=== PATIENT | female | born 1965 | race Caucasian/White ===

== ENCOUNTER 2019-01-24 16:12 | Observation (INO) | payer OTHER ==
[2019-01-24] MEDS ORDERED: Sodium Chloride 0.9% 2,000 ML IV ONE (16:30)
[2019-01-24] MEDS ORDERED: Ondansetron 4 MG/2 ML SDV IVPUSH ONE (16:30)
--- NOTE | 2019-01-24 16:34 | EDM.PDOC ---
ED HPI GENERAL MEDICAL PROBLEM - General Chief Complaint: Gastrointestinal Problem Stated Complaint: DIZZY Time Seen by Provider: 01/24/19 16:25 - History of Present Illness INITIAL COMMENTS - FREE TEXT/NARRATIVE: HISTORY AND PHYSICAL: History of present illness: Patient 53-year-old white female who presents with a concern of dizziness vomiting and diarrhea 1 day she just returned from [place] and may have eaten a bad chicken sandwich in the airport. She denies fever chills denies chest pain shortness of breath. She denies trauma urinary symptoms vaginal discharge bleeding or any other complaints. Review of systems: As per history of present illness and below otherwise all systems reviewed and negative. Past medical history: As per history of present illness and as reviewed below otherwise noncontributory. Surgical history: As per history of present illness and as reviewed below otherwise noncontributory. Social history: No reported history of drug or alcohol abuse. Family history: As per history of present illness and as reviewed below otherwise noncontributory. Physical exam: HEENT: Atraumatic, normocephalic, pupils reactive, negative for conjunctival pallor or scleral icterus, mucous membranes dry, throat clear, neck supple, nontender, trachea midline. Lungs: Clear to auscultation, breath sounds equal bilaterally, chest nontender. Heart: S1S2, regular, negative for clicks, rubs, or JVD. Abdomen: Soft, nondistended, nontender. Negative for masses or hepatosplenomegaly. Negative for costovertebral tenderness. Pelvis: Stable nontender. Genitourinary: Deferred. Rectal: Deferred. Extremities: Atraumatic, negative for cords or calf pain. Neurovascular unremarkable. Neuro: Awake, alert, oriented. Cranial nerves II through XII unremarkable. Cerebellum unremarkable. Motor and sensory unremarkable throughout. Exam nonfocal. Diagnostics: CBC CMP troponin PT/INR lipase UA acute abdominal series with chest x-ray CT brain stool for C&S O&P and C. difficile Therapeutics: Normal saline 2 L bolus Zofran 4 mg IV Impression: #1 gastroenteritis with dehydration #2 dizziness Definitive disposition and diagnosis as appropriate pending reevaluation and review of above. abd Pain Score (Numeric/FACES): 5 - Related Data Allergies Allergy/AdvReac Type Severity Reaction Status Date / Time No Known Allergies Allergy Verified 01/24/19 16:22 Home Meds: Home Meds Blood p 01/24/19 [History] PARoxetine HCl [Paxil] 01/24/19 [History] Stomach Medication 01/24/19 [History] ED ROS GENERAL - Review of Systems Review Of Systems: ROS reveals no pertinent complaints other than HPI. ED EXAM, GENERAL - Physical Exam Exam: See Below (dictation) Course - Vital Signs Last Recorded V/S: Last Vital Signs Temp 35.8 C 01/24/19 16:23 Pulse 79 01/24/19 17:56 Resp 16 01/24/19 17:56 BP 135/80 01/24/19 17:56 Pulse Ox 99 01/24/19 17:56 - Orders/Labs/Meds Orders: Active Orders 24 hr Category Date Time Status EKG Documentation Completion [RC] STAT Care 01/24/19 16:28 Active Abdomen Series w Chest 1V [CR] Stat Exams 01/24/19 16:29 Taken Head wo Cont [CT] Stat Exams 01/24/19 16:29 Taken CDIFF TOX A+B [OP] Stat Lab 01/24/19 16:29 Ordered CULTURE BLOOD [BC] Stat Lab 01/24/19 17:25 Received CULTURE BLOOD [BC] Stat Lab 01/24/19 17:53 Received CULTURE STOOL + CAMPY+SHIGATOX [RM] Stat Lab 01/24/19 16:29 Ordered CULTURE URINE [RM] Stat Lab 01/24/19 16:45 Received Piperacillin/Tazobactam [Piperacil-Tazobact] 3.375 gm Med 01/24/19 18:09 Active Sodium Chloride 0.9% [Normal Saline] 50 ml IV ONETIME Sodium Chloride 0.9% [Normal Saline] 1,000 ml Med 01/24/19 18:09 Active IV .Bolus Sodium Chloride 0.9% [Normal Saline] 2,000 ml Med 01/24/19 16:30 Active IV STAT Blood Culture x2 Reflex Set [OM.PC] Stat Oth 01/24/19 16:29 Ordered Isolation [COMM] Stat Oth 01/24/19 16:29 Ordered Medication Orders Sodium Chloride (Normal Saline) 2,000 mls @ 999 mls/hr IV STAT ONE Stop: 01/24/19 18:30 Last Admin: 01/24/19 17:30 Dose: 999 mls/hr Piperacillin Sod/Tazobactam (Sod 3.375 gm/ Sodium Chloride) 50 mls @ 100 mls/ hr IV ONETIME ONE Stop: 01/24/19 18:38 Sodium Chloride (Normal Saline) 1,000 mls @ 999 mls/hr IV .Bolus ONE Stop: 01/24/19 19:09 Labs: Laboratory Tests 01/24/19 01/24/19 01/24/19 Range/Units 16:45 17:25 17:25 WBC 11.85 H (4.0-11.0) K/uL RBC 5.12 (4.30-5.90) M/uL Hgb 17.5 H (12.0-16.0) g/dL Hct 49.4 H (36.0-46.0) % MCV 96.5 (80.0-98.0) fL MCH 34.2 H (27.0-32.0) pg MCHC 35.4 (31.0-37.0) g/dL RDW Std Deviation 46.4 (28.0-62.0) fl RDW Coeff of Britton 13 (11.0-15.0) % Plt Count 226 (150-400) K/uL MPV 10.90 (7.40-12.00) fL Neut % (Auto) 94.2 H (48.0-80.0) % Lymph % (Auto) 1.4 L (16.0-40.0) % [place] % (Auto) 4.2 (0.0-15.0) % Eos % (Auto) 0.1 (0.0-7.0) % Baso % (Auto) 0.1 (0.0-1.5) % Neut # (Auto) 11.2 H (1.4-5.7) K/uL Lymph # (Auto) 0.2 L (0.6-2.4) K/uL [place] # (Auto) 0.5 (0.0-0.8) K/uL Eos # (Auto) 0.0 (0.0-0.7) K/uL Baso # (Auto) 0.0 (0.0-0.1) K/uL Nucleated RBC % 0.0 /100WBC Nucleated RBCs # 0 K/uL INR 1.11 ABG Carboxyhemoglobin (0-15) % Lactate (0.20-2.00) mmol/L Sodium (136-145) mmol/L Potassium (3.5-5.1) mmol/L Chloride (98-107) mmol/L Carbon Dioxide (21.0-32.0) mmol/L BUN (7.0-18.0) mg/dL Creatinine (0.6-1.0) mg/dL Est Cr Clr Drug Dosing mL/min Estimated GFR (MDRD) ml/min Glucose (74-106) mg/dL Calcium (8.5-10.1) mg/dL Total Bilirubin (0.2-1.0) mg/dL AST (15-37) IU/L ALT (14-63) IU/L Alkaline Phosphatase (46-116) U/L Troponin I (0.000-0.056) ng/mL Total Protein (6.4-8.2) g/dL Albumin (3.4-5.0) g/dL Globulin (2.6-4.0) g/dL Albumin/Globulin Ratio (0.9-1.6) Lipase (73-393) U/L Urine Color DARK YELLOW Urine Appearance CLOUDY Urine pH 5.5 (5.0-8.0) Ur Specific [place] >= 1.030 (1.001-1.035) Urine Protein 30 H (NEGATIVE) mg/dL Urine Glucose (UA) NEGATIVE (NEGATIVE) mg/dL Urine Ketones TRACE H (NEGATIVE) mg/dL Urine Occult Blood NEGATIVE (NEGATIVE) Urine Nitrite POSITIVE H (NEGATIVE) Urine Bilirubin MODERATE H (NEGATIVE) Urine Ictotest POSITIVE Urine Urobilinogen 0.2 (<2.0) EU/dL Ur Leukocyte Esterase TRACE H (NEGATIVE) Urine RBC NONE SEEN (0-2/HPF) Urine WBC 2-4 (0-5/HPF) Ur Epithelial Cells MANY (NONE-FEW) Amorphous Sediment MODERATE (NEGATIVE) Urine Bacteria 1+ H (NEGATIVE) Urine Mucus MODERATE (NONE-MOD) 01/24/19 01/24/19 01/24/19 Range/Units 17:25 17:25 17:25 WBC (4.0-11.0) K/uL RBC (4.30-5.90) M/uL Hgb (12.0-16.0) g/dL Hct (36.0-46.0) % MCV (80.0-98.0) fL MCH (27.0-32.0) pg MCHC (31.0-37.0) g/dL RDW Std Deviation (28.0-62.0) fl RDW Coeff of Britton (11.0-15.0) % Plt Count (150-400) K/uL MPV (7.40-12.00) fL Neut % (Auto) (48.0-80.0) % Lymph % (Auto) (16.0-40.0) % [place] % (Auto) (0.0-15.0) % Eos % (Auto) (0.0-7.0) % Baso % (Auto) (0.0-1.5) % Neut # (Auto) (1.4-5.7) K/uL Lymph # (Auto) (0.6-2.4) K/uL [place] # (Auto) (0.0-0.8) K/uL Eos # (Auto) (0.0-0.7) K/uL Baso # (Auto) (0.0-0.1) K/uL Nucleated RBC % /100WBC Nucleated RBCs # K/uL INR ABG Carboxyhemoglobin 1.8 (0-15) % Lactate 3.0 H (0.20-2.00) mmol/L Sodium 142 (136-145) mmol/L Potassium 3.8 (3.5-5.1) mmol/L Chloride 105 (98-107) mmol/L Carbon Dioxide 20.9 L (21.0-32.0) mmol/L BUN 19 H (7.0-18.0) mg/dL Creatinine 1.1 H (0.6-1.0) mg/dL Est Cr Clr Drug Dosing 56.19 mL/min Estimated GFR (MDRD) 51.6 ml/min Glucose 183 H (74-106) mg/dL Calcium 10.6 H (8.5-10.1) mg/dL Total Bilirubin 1.5 H (0.2-1.0) mg/dL AST 34 (15-37) IU/L ALT 63 (14-63) IU/L Alkaline Phosphatase 88 (46-116) U/L Troponin I < 0.050 (0.000-0.056) ng/mL Total Protein 8.3 H (6.4-8.2) g/dL Albumin 4.4 (3.4-5.0) g/dL Globulin 3.9 (2.6-4.0) g/dL Albumin/Globulin Ratio 1.1 (0.9-1.6) Lipase 61 L (73-393) U/L Urine Color Urine Appearance Urine pH (5.0-8.0) Ur Specific [place] (1.001-1.035) Urine Protein (NEGATIVE) mg/dL Urine Glucose (UA) (NEGATIVE) mg/dL Urine Ketones (NEGATIVE) mg/dL Urine Occult Blood (NEGATIVE) Urine Nitrite (NEGATIVE) Urine Bilirubin (NEGATIVE) Urine Ictotest Urine Urobilinogen (<2.0) EU/dL Ur Leukocyte Esterase (NEGATIVE) Urine RBC (0-2/HPF) Urine WBC (0-5/HPF) Ur Epithelial Cells (NONE-FEW) Amorphous Sediment (NEGATIVE) Urine Bacteria (NEGATIVE) Urine Mucus (NONE-MOD) Meds: Medications Generic Name Dose Route Start Last Admin Trade Name Freq PRN Reason Stop Dose Admin Sodium Chloride 2,000 mls @ 999 mls/hr 01/24/19 16:30 01/24/19 17:30 Normal Saline IV 01/24/19 18:30 999 mls/hr STAT ONE Administration Piperacillin Sod/Tazobactam 50 mls @ 100 mls/hr 01/24/19 18:09 Sod 3.375 gm/ Sodium Chloride IV 01/24/19 18:38 ONETIME ONE Sodium Chloride 1,000 mls @ 999 mls/hr 01/24/19 18:09 Normal Saline IV 01/24/19 19:09 .Bolus ONE Discontinued Medications Generic Name Dose Route Start Last Admin Trade Name Freq PRN Reason Stop Dose Admin Ceftriaxone Sodium/Dextrose 1 50 mls @ 100 mls/hr 01/24/19 17:17 01/24/19 17: 30 gm/ Premix IV 01/24/19 17:46 100 mls/hr ONETIME ONE Administration Ondansetron HCl 4 mg 01/24/19 16:30 01/24/19 17:30 Zofran IVPUSH 01/24/19 16:31 4 mg ONETIME ONE Administration Departure - Departure Time of Disposition: 18:11 Disposition: Refer to Observation Condition: Good Clinical Impression: Dehydration, Gastroenteritis, UTI (urinary tract infection), Lactic acidemia - Discharge Information Referrals: PCP,Unknown [Primary Care Provider] - Forms: ED Department Discharge - My Orders Last 24 Hours: My Active Orders 01/24/19 16:28 EKG Documentation Completion [RC] STAT 01/24/19 16:29 Abdomen Series w Chest 1V [CR] Stat Head wo Cont [CT] Stat CDIFF TOX A+B [OP] Stat CULTURE STOOL + CAMPY+SHIGATOX [RM] Stat Blood Culture x2 Reflex Set [OM.PC] Stat Isolation [COMM] Stat 01/24/19 16:30 Sodium Chloride 0.9% [Normal Saline] 2,000 ml IV STAT 01/24/19 16:45 CULTURE URINE [RM] Stat 01/24/19 17:25 CULTURE BLOOD [BC] Stat 01/24/19 17:53 CULTURE BLOOD [BC] Stat 01/24/19 18:09 Piperacillin/Tazobactam [Piperacil-Tazobact] 3.375 gm Sodium Chloride 0.9% [ Normal Saline] 50 ml IV ONETIME Sodium Chloride 0.9% [Normal Saline] 1,000 ml IV .Bolus - Assessment/Plan Last 24 Hours: My Active Orders 01/24/19 16:28 EKG Documentation Completion [RC] STAT 01/24/19 16:29 Abdomen Series w Chest 1V [CR] Stat Head wo Cont [CT] Stat CDIFF TOX A+B [OP] Stat CULTURE STOOL + CAMPY+SHIGATOX [RM] Stat Blood Culture x2 Reflex Set [OM.PC] Stat Isolation [COMM] Stat 01/24/19 16:30 Sodium Chloride 0.9% [Normal Saline] 2,000 ml IV STAT 01/24/19 16:45 CULTURE URINE [RM] Stat 01/24/19 17:25 CULTURE BLOOD [BC] Stat 01/24/19 17:53 CULTURE BLOOD [BC] Stat 01/24/19 18:09 Piperacillin/Tazobactam [Piperacil-Tazobact] 3.375 gm Sodium Chloride 0.9% [ Normal Saline] 50 ml IV ONETIME Sodium Chloride 0.9% [Normal Saline] 1,000 ml IV .Bolus
[2019-01-24] MEDS ORDERED: cefTRIAXone 1 GM in Premix Bag 1 BAG IV ONE (17:17)
[2019-01-24 18:05] LABS: BLOOD UREA NITROGEN,BUN 19 mg/dL (7.0-18.0); CARBON DIOXIDE,CO2 20.9 mmol/L (21.0-32.0); CHLORIDE,CL 105 mmol/L (98-107); GLUCOSE RANDOM 183 mg/dL (74-106); POTASSIUM,K 3.8 mmol/L (3.5-5.1); SODIUM,NA 142 mmol/L (136-145)
[2019-01-24] MEDS ORDERED: Piperacillin/Tazobactam 3.375 GM in Sodium Chloride 0.9% 50 ML IV ONE (18:09)
[2019-01-24] MEDS ORDERED: Sodium Chloride 0.9% 1,000 ML IV ONE (18:09)
--- NOTE | 2019-01-24 18:14 | CR ---
Indication: Dizziness. Nausea, vomiting, diarrhea x1 day. Technique: A PA view of the chest, and supine and upright views of the abdomen and pelvis were obtained. Comparison: None Findings: The heart is normal in size. The lungs are clear. No infiltrate, pleural effusion, or pneumothorax is identified. No free air is identified. The bowel gas pattern is nonobstructive. Impression: Nonobstructed bowel-gas pattern. No free air. No acute cardiopulmonary process. Dictated by Simi Torres MD @ Jan 24 2019 5:53PM Signed by Dr. Simi Torres @ Jan 24 2019 6:12PM
--- NOTE | 2019-01-24 18:14 | CT ---
Indication: Nausea. Vomiting. Headache. Technique: Multiple contiguous axial images were obtained from the skullbase to the vertex without intravenous contrast enhancement. Please note that all CT scans at this facility use dose modulation, iterative reconstruction, and/or weight-based dosing when appropriate to reduce radiation dose to as low as reasonably achievable. Comparison: None Findings: The ventricles are symmetric and normal in size and morphology. The basal cisterns are widely patent. No intra-axial or extra-axial hemorrhage is identified. No mass, mass effect or midline shift is seen. The bony calvarium is intact. The visualized paranasal sinuses and mastoid air cells are clear. Impression: No acute intracranial process. The patient continues to experience symptoms consideration should be given to an MRI. Please note that all CT scans at this facility use dose modulation, iterative reconstruction, and/or weight-based dosing when appropriate to reduce radiation dose to as low as reasonably achievable. Dictated by Simi Torres MD @ Jan 24 2019 5:46PM Signed by Dr. Simi Torres @ Jan 24 2019 6:12PM
--- NOTE | 2019-01-24 18:35 | PCM.HP.2 ---
H&P History of Present Illness - General Date of Service: 01/24/19 Admit Problem/Dx: Admission Diagnosis/Problem Admission Diagnosis/Problem Gastroenteritis - History of Present Illness Initial Comments - Free Text/Narative: The patient is a 53-year-old female presented to the ED with vomiting, diarrhea and dizziness which started this morning. She reports watery , nonbloody bowel movements. She reports she's had too many to count. She also been vomiting, nonbilious nonbloody. She reports lower abdominal cramping. She denies any recent fever, chills, chest pain, shortness of breath, or dysuria. She recently returned from vacation in [place]. She did eat at a restaurant she's not used to last night and had a chicken sandwich. In the ER workup showed a slight white count of 11.8, she is hemoconcentrated with hemoglobin of 17.5. She had an elevated lactate of 3. She had an acute kidney injury with a creatinine 1.1. Her UA was positive for nitrates and leuk esterase. X-ray of the chest and abdomen showed no acute processes and head CT showed no acute intracranial processes. Stool cultures, C. difficile and blood cultures were pending. In the ER, she received 3 L of IV fluids. A dose of Rocephin and a dose of Zosyn. abd Pain Score (Numeric/FACES): 5 - Related Data Allergies/Adverse Reactions: Allergies Allergy/AdvReac Type Severity Reaction Status Date / Time No Known Allergies Allergy Verified 01/24/19 16:22 Home Medications: Home Meds Blood p 01/24/19 [History] PARoxetine HCl [Paxil] 01/24/19 [History] Stomach Medication 01/24/19 [History] Past Medical History HEENT History: Reports: None Cardiovascular History: Reports: Hypertension Respiratory History: Reports: None Gastrointestinal History: Reports: None Genitourinary History: Reports: None EVP [place] History: Reports: None Musculoskeletal History: Reports: None Neurological History: Reports: None Psychiatric History: Reports: Depression Endocrine/Metabolic History: Reports: None Hematologic History: Reports: None Immunologic History: Reports: None Oncologic (Cancer) History: Reports: None Dermatologic History: Reports: None - Infectious Disease History Infectious Disease History: Reports: Chicken Pox - Past Surgical History GI Surgical History: Reports: Appendectomy Social & Family History - Family History Family Medical History: Noncontributory - Tobacco Use Smoking Status *Q: Never Smoker - Alcohol Use Alcohol Use History: Yes - Recreational Drug Use Recreational Drug Use: No H&P Review of Systems - Review of Systems: Review Of Systems: See Below General: Reports: No Symptoms HEENT: Reports: No Symptoms Pulmonary: Reports: No Symptoms Cardiovascular: Reports: No Symptoms Gastrointestinal: Reports: Abdominal Pain, Diarrhea, Nausea, Vomiting. Denies: Black Stool, Bloody Stool, Hematemesis Genitourinary: Reports: No Symptoms Musculoskeletal: Reports: No Symptoms Skin: Reports: No Symptoms Psychiatric: Reports: No Symptoms Neurological: Reports: No Symptoms Hematologic/Lymphatic: Reports: No Symptoms Immunologic: Reports: No Symptoms Exam - Exam Exam: See Below - Vital Signs Vital Signs: Last Vital Signs Temp 96.5 F 01/24/19 16:23 Pulse 79 01/24/19 17:56 Resp 16 01/24/19 17:56 BP 135/80 01/24/19 17:56 Pulse Ox 99 01/24/19 17:56 Weight: 79.379 kg - Exam General: Alert, Oriented, Cooperative Neck: Supple, Trachea Midline Lungs: Clear to Auscultation, Normal Respiratory Effort Cardiovascular: Regular Rate, Regular Rhythm GI/Abdominal Exam: Normal Bowel Sounds, Soft, Tender (lower abdomen). No: Guarding, Rebound Extremities: No Pedal Edema Skin: Warm, Dry Psychiatric: Alert, Normal Affect, Normal Mood - Patient Data Lab Results Last 24 hrs: Laboratory Results - last 24 hr 01/24/19 01/24/19 01/24/19 Range/Units 16:45 17:25 17:25 WBC 11.85 H (4.0-11.0) K/uL RBC 5.12 (4.30-5.90) M/uL Hgb 17.5 H (12.0-16.0) g/dL Hct 49.4 H (36.0-46.0) % MCV 96.5 (80.0-98.0) fL MCH 34.2 H (27.0-32.0) pg MCHC 35.4 (31.0-37.0) g/dL RDW Std Deviation 46.4 (28.0-62.0) fl RDW Coeff of Britton 13 (11.0-15.0) % Plt Count 226 (150-400) K/uL MPV 10.90 (7.40-12.00) fL Neut % (Auto) 94.2 H (48.0-80.0) % Lymph % (Auto) 1.4 L (16.0-40.0) % [place] % (Auto) 4.2 (0.0-15.0) % Eos % (Auto) 0.1 (0.0-7.0) % Baso % (Auto) 0.1 (0.0-1.5) % Neut # (Auto) 11.2 H (1.4-5.7) K/uL Lymph # (Auto) 0.2 L (0.6-2.4) K/uL [place] # (Auto) 0.5 (0.0-0.8) K/uL Eos # (Auto) 0.0 (0.0-0.7) K/uL Baso # (Auto) 0.0 (0.0-0.1) K/uL Nucleated RBC % 0.0 /100WBC Nucleated RBCs # 0 K/uL INR 1.11 ABG Carboxyhemoglobin (0-15) % Lactate (0.20-2.00) mmol/L Sodium (136-145) mmol/L Potassium (3.5-5.1) mmol/L Chloride (98-107) mmol/L Carbon Dioxide (21.0-32.0) mmol/L BUN (7.0-18.0) mg/dL Creatinine (0.6-1.0) mg/dL Est Cr Clr Drug Dosing mL/min Estimated GFR (MDRD) ml/min Glucose (74-106) mg/dL Calcium (8.5-10.1) mg/dL Total Bilirubin (0.2-1.0) mg/dL AST (15-37) IU/L ALT (14-63) IU/L Alkaline Phosphatase (46-116) U/L Troponin I (0.000-0.056) ng/mL Total Protein (6.4-8.2) g/dL Albumin (3.4-5.0) g/dL Globulin (2.6-4.0) g/dL Albumin/Globulin Ratio (0.9-1.6) Lipase (73-393) U/L Urine Color DARK YELLOW Urine Appearance CLOUDY Urine pH 5.5 (5.0-8.0) Ur Specific [place] >= 1.030 (1.001-1.035) Urine Protein 30 H (NEGATIVE) mg/dL Urine Glucose (UA) NEGATIVE (NEGATIVE) mg/dL Urine Ketones TRACE H (NEGATIVE) mg/dL Urine Occult Blood NEGATIVE (NEGATIVE) Urine Nitrite POSITIVE H (NEGATIVE) Urine Bilirubin MODERATE H (NEGATIVE) Urine Ictotest POSITIVE Urine Urobilinogen 0.2 (<2.0) EU/dL Ur Leukocyte Esterase TRACE H (NEGATIVE) Urine RBC NONE SEEN (0-2/HPF) Urine WBC 2-4 (0-5/HPF) Ur Epithelial Cells MANY (NONE-FEW) Amorphous Sediment MODERATE (NEGATIVE) Urine Bacteria 1+ H (NEGATIVE) Urine Mucus MODERATE (NONE-MOD) 01/24/19 01/24/19 01/24/19 Range/Units 17:25 17:25 17:25 WBC (4.0-11.0) K/uL RBC (4.30-5.90) M/uL Hgb (12.0-16.0) g/dL Hct (36.0-46.0) % MCV (80.0-98.0) fL MCH (27.0-32.0) pg MCHC (31.0-37.0) g/dL RDW Std Deviation (28.0-62.0) fl RDW Coeff of [place]on (11.0-15.0) % Plt Count (150-400) K/uL MPV (7.40-12.00) fL Neut % (Auto) (48.0-80.0) % Lymph % (Auto) (16.0-40.0) % [place] % (Auto) (0.0-15.0) % Eos % (Auto) (0.0-7.0) % Baso % (Auto) (0.0-1.5) % Neut # (Auto) (1.4-5.7) K/uL Lymph # (Auto) (0.6-2.4) K/uL [place] # (Auto) (0.0-0.8) K/uL Eos # (Auto) (0.0-0.7) K/uL Baso # (Auto) (0.0-0.1) K/uL Nucleated RBC % /100WBC Nucleated RBCs # K/uL INR ABG Carboxyhemoglobin 1.8 (0-15) % Lactate 3.0 H (0.20-2.00) mmol/L Sodium 142 (136-145) mmol/L Potassium 3.8 (3.5-5.1) mmol/L Chloride 105 (98-107) mmol/L Carbon Dioxide 20.9 L (21.0-32.0) mmol/L BUN 19 H (7.0-18.0) mg/dL Creatinine 1.1 H (0.6-1.0) mg/dL Est Cr Clr Drug Dosing 56.19 mL/min Estimated GFR (MDRD) 51.6 ml/min Glucose 183 H (74-106) mg/dL Calcium 10.6 H (8.5-10.1) mg/dL Total Bilirubin 1.5 H (0.2-1.0) mg/dL AST 34 (15-37) IU/L ALT 63 (14-63) IU/L Alkaline Phosphatase 88 (46-116) U/L Troponin I < 0.050 (0.000-0.056) ng/mL Total Protein 8.3 H (6.4-8.2) g/dL Albumin 4.4 (3.4-5.0) g/dL Globulin 3.9 (2.6-4.0) g/dL Albumin/Globulin Ratio 1.1 (0.9-1.6) Lipase 61 L (73-393) U/L Urine Color Urine Appearance Urine pH (5.0-8.0) Ur Specific [place] (1.001-1.035) Urine Protein (NEGATIVE) mg/dL Urine Glucose (UA) (NEGATIVE) mg/dL Urine Ketones (NEGATIVE) mg/dL Urine Occult Blood (NEGATIVE) Urine Nitrite (NEGATIVE) Urine Bilirubin (NEGATIVE) Urine Ictotest Urine Urobilinogen (<2.0) EU/dL Ur Leukocyte Esterase (NEGATIVE) Urine RBC (0-2/HPF) Urine WBC (0-5/HPF) Ur Epithelial Cells (NONE-FEW) Amorphous Sediment (NEGATIVE) Urine Bacteria (NEGATIVE) Urine Mucus (NONE-MOD) Result Diagrams: 01/24/19 17:25 01/24/19 17:25 Problem List Initiated/Reviewed/Updated: Yes Orders Last 24hrs: Active Orders 24 hr Category Date Time Status Patient Status [ADT] Stat ADT 01/24/19 18:14 Active EKG Documentation Completion [RC] STAT Care 01/24/19 16:28 Active CDIFF TOX A+B [OP] Stat Lab 01/24/19 16:29 Ordered CULTURE BLOOD [BC] Stat Lab 01/24/19 17:25 Received CULTURE BLOOD [BC] Stat Lab 01/24/19 17:53 Received CULTURE STOOL + CAMPY+SHIGATOX [RM] Stat Lab 01/24/19 16:29 Ordered CULTURE URINE [RM] Stat Lab 01/24/19 16:45 Received Piperacillin/Tazobactam [Piperacil-Tazobact] 3.375 gm Med 01/24/19 18:09 Active Sodium Chloride 0.9% [Normal Saline] 50 ml IV ONETIME Sodium Chloride 0.9% [Normal Saline] 1,000 ml Med 01/24/19 18:09 Active IV .Bolus Sodium Chloride 0.9% [Normal Saline] 2,000 ml Med 01/24/19 16:30 Active IV STAT Blood Culture x2 Reflex Set [OM.PC] Stat Oth 01/24/19 16:29 Ordered Isolation [COMM] Stat Oth 01/24/19 16:29 Ordered Medication Orders Sodium Chloride (Normal Saline) 2,000 mls @ 999 mls/hr IV STAT ONE Stop: 01/24/19 18:30 Last Admin: 01/24/19 17:30 Dose: 999 mls/hr Piperacillin Sod/Tazobactam (Sod 3.375 gm/ Sodium Chloride) 50 mls @ 100 mls/ hr IV ONETIME ONE Stop: 01/24/19 18:38 Last Admin: 01/24/19 18:25 Dose: 100 mls/hr Sodium Chloride (Normal Saline) 1,000 mls @ 999 mls/hr IV .Bolus ONE Stop: 01/24/19 19:09 Last Admin: 01/24/19 18:28 Dose: 999 mls/hr Assessment/Plan Comment:: 1. Admit for observation 2. Code status- Full 3. Vitals per routine 4. I/Os per routine 5. Diet- NPO except meds/ice chips 6. DVT prophylaxis with SCDs 7. Nausea, vomiting, diarrhea likely gastroenteritis- will continue IVF at 150 cc/hr, obtain stool studies,follow up on blood cultures. Zofran for nausea/ vomiting. 8. Elevated lactate- repeat in 6 hours, continue IVF 9. WADE likely secondary to dehydration- IVF, recheck in AM 10. Hemoconcentration- likely secondary to dehydration- IVF, recheck in AM 11. UTI- continue Rocephin, urine culture pending.
[2019-01-24] MEDS ORDERED: Ondansetron 4 MG/2 ML SDV IVPUSH PRN (18:41)
[2019-01-24] MEDS ORDERED: Acetaminophen 325 MG Tab PO PRN (18:41)
[2019-01-24] MEDS ORDERED: cefTRIAXone 1 GM in Premix Bag 1 BAG IV SCH (18:45)
[2019-01-24] MEDS: Sodium Chloride 0.9% 1,000 ML IV SCH (21:16)
[2019-01-25] MEDS: Sodium Chloride 0.9% 1,000 ML IV SCH ×2 (03:55→10:26)
[2019-01-25 06:53] LABS: BLOOD UREA NITROGEN,BUN 12 mg/dL (7.0-18.0); CARBON DIOXIDE,CO2 23.2 mmol/L (21.0-32.0); CHLORIDE,CL 112 mmol/L (98-107); GLUCOSE RANDOM 105 mg/dL (74-106); POTASSIUM,K 3.6 mmol/L (3.5-5.1); SODIUM,NA 147 mmol/L (136-145)
[2019-01-25] MEDS ORDERED: Azithromycin 250 MG Tab PO SCH (07:30)
--- NOTE | 2019-01-25 07:37 | PCM.PN ---
- General Info Date of Service: 01/25/19 Subjective Update: The patient is a 53 year old female who was admitted for nausea,vomiting, and diarrhea found to be positive for Campylobacter. Reports she feels much better today after receiving close to 4 L of IVF. She reports that she is still having significant diarrhea and is unsure if she is ready to be discharged home. - Review of Systems General: Reports: No Symptoms HEENT: Reports: No Symptoms Pulmonary: Reports: No Symptoms Cardiovascular: Reports: No Symptoms Gastrointestinal: Reports: Abdominal Pain (lower abdominal cramping), Diarrhea, Nausea. Denies: Vomiting Genitourinary: Reports: No Symptoms Musculoskeletal: Reports: No Symptoms Skin: Reports: No Symptoms Neurological: Reports: No Symptoms Psychiatric: Reports: No Symptoms - Patient Data Vitals - Most Recent: Last Vital Signs Temp 98.4 F 01/25/19 07:29 Pulse 95 01/25/19 03:45 Resp 18 01/25/19 07:29 BP 154/85 H 01/25/19 07:29 Pulse Ox 96 01/25/19 07:29 Weight - Most Recent: 85.366 kg I&O - Last 24 Hours: Intake & Output 01/24/19 01/25/19 01/25/19 22:59 06:59 14:59 Intake Total 922 Output Total 750 Balance 172 Lab Results Last 24 Hours: Laboratory Results - last 24 hr 01/24/19 01/24/19 01/24/19 Range/Units 16:45 17:25 17:25 WBC 11.85 H (4.0-11.0) K/uL RBC 5.12 (4.30-5.90) M/uL Hgb 17.5 H (12.0-16.0) g/dL Hct 49.4 H (36.0-46.0) % MCV 96.5 (80.0-98.0) fL MCH 34.2 H (27.0-32.0) pg MCHC 35.4 (31.0-37.0) g/dL RDW Std Deviation 46.4 (28.0-62.0) fl RDW Coeff of Britton 13 (11.0-15.0) % Plt Count 226 (150-400) K/uL MPV 10.90 (7.40-12.00) fL Neut % (Auto) 94.2 H (48.0-80.0) % Lymph % (Auto) 1.4 L (16.0-40.0) % [place] % (Auto) 4.2 (0.0-15.0) % Eos % (Auto) 0.1 (0.0-7.0) % Baso % (Auto) 0.1 (0.0-1.5) % Neut # (Auto) 11.2 H (1.4-5.7) K/uL Lymph # (Auto) 0.2 L (0.6-2.4) K/uL [place] # (Auto) 0.5 (0.0-0.8) K/uL Eos # (Auto) 0.0 (0.0-0.7) K/uL Baso # (Auto) 0.0 (0.0-0.1) K/uL Nucleated RBC % 0.0 /100WBC Nucleated RBCs # 0 K/uL INR 1.11 ABG Carboxyhemoglobin (0-15) % Lactate (0.20-2.00) mmol/L Sodium (136-145) mmol/L Potassium (3.5-5.1) mmol/L Chloride (98-107) mmol/L Carbon Dioxide (21.0-32.0) mmol/L BUN (7.0-18.0) mg/dL Creatinine (0.6-1.0) mg/dL Est Cr Clr Drug Dosing mL/min Estimated GFR (MDRD) ml/min Glucose (74-106) mg/dL Calcium (8.5-10.1) mg/dL Total Bilirubin (0.2-1.0) mg/dL AST (15-37) IU/L ALT (14-63) IU/L Alkaline Phosphatase (46-116) U/L Troponin I (0.000-0.056) ng/mL Total Protein (6.4-8.2) g/dL Albumin (3.4-5.0) g/dL Globulin (2.6-4.0) g/dL Albumin/Globulin Ratio (0.9-1.6) Lipase (73-393) U/L Urine Color DARK YELLOW Urine Appearance CLOUDY Urine pH 5.5 (5.0-8.0) Ur Specific [place] >= 1.030 (1.001-1.035) Urine Protein 30 H (NEGATIVE) mg/dL Urine Glucose (UA) NEGATIVE (NEGATIVE) mg/dL Urine Ketones TRACE H (NEGATIVE) mg/dL Urine Occult Blood NEGATIVE (NEGATIVE) Urine Nitrite POSITIVE H (NEGATIVE) Urine Bilirubin MODERATE H (NEGATIVE) Urine Ictotest POSITIVE Urine Urobilinogen 0.2 (<2.0) EU/dL Ur Leukocyte Esterase TRACE H (NEGATIVE) Urine RBC NONE SEEN (0-2/HPF) Urine WBC 2-4 (0-5/HPF) Ur Epithelial Cells MANY (NONE-FEW) Amorphous Sediment MODERATE (NEGATIVE) Urine Bacteria 1+ H (NEGATIVE) Urine Mucus MODERATE (NONE-MOD) 01/24/19 01/24/19 01/24/19 Range/Units 17:25 17:25 17:25 WBC (4.0-11.0) K/uL RBC (4.30-5.90) M/uL Hgb (12.0-16.0) g/dL Hct (36.0-46.0) % MCV (80.0-98.0) fL MCH (27.0-32.0) pg MCHC (31.0-37.0) g/dL RDW Std Deviation (28.0-62.0) fl RDW Coeff of Britton (11.0-15.0) % Plt Count (150-400) K/uL MPV (7.40-12.00) fL Neut % (Auto) (48.0-80.0) % Lymph % (Auto) (16.0-40.0) % [place] % (Auto) (0.0-15.0) % Eos % (Auto) (0.0-7.0) % Baso % (Auto) (0.0-1.5) % Neut # (Auto) (1.4-5.7) K/uL Lymph # (Auto) (0.6-2.4) K/uL [place] # (Auto) (0.0-0.8) K/uL Eos # (Auto) (0.0-0.7) K/uL Baso # (Auto) (0.0-0.1) K/uL Nucleated RBC % /100WBC Nucleated RBCs # K/uL INR ABG Carboxyhemoglobin 1.8 (0-15) % Lactate 3.0 H (0.20-2.00) mmol/L Sodium 142 (136-145) mmol/L Potassium 3.8 (3.5-5.1) mmol/L Chloride 105 (98-107) mmol/L Carbon Dioxide 20.9 L (21.0-32.0) mmol/L BUN 19 H (7.0-18.0) mg/dL Creatinine 1.1 H (0.6-1.0) mg/dL Est Cr Clr Drug Dosing 56.19 mL/min Estimated GFR (MDRD) 51.6 ml/min Glucose 183 H (74-106) mg/dL Calcium 10.6 H (8.5-10.1) mg/dL Total Bilirubin 1.5 H (0.2-1.0) mg/dL AST 34 (15-37) IU/L ALT 63 (14-63) IU/L Alkaline Phosphatase 88 (46-116) U/L Troponin I < 0.050 (0.000-0.056) ng/mL Total Protein 8.3 H (6.4-8.2) g/dL Albumin 4.4 (3.4-5.0) g/dL Globulin 3.9 (2.6-4.0) g/dL Albumin/Globulin Ratio 1.1 (0.9-1.6) Lipase 61 L (73-393) U/L Urine Color Urine Appearance Urine pH (5.0-8.0) Ur Specific [place] (1.001-1.035) Urine Protein (NEGATIVE) mg/dL Urine Glucose (UA) (NEGATIVE) mg/dL Urine Ketones (NEGATIVE) mg/dL Urine Occult Blood (NEGATIVE) Urine Nitrite (NEGATIVE) Urine Bilirubin (NEGATIVE) Urine Ictotest Urine Urobilinogen (<2.0) EU/dL Ur Leukocyte Esterase (NEGATIVE) Urine RBC (0-2/HPF) Urine WBC (0-5/HPF) Ur Epithelial Cells (NONE-FEW) Amorphous Sediment (NEGATIVE) Urine Bacteria (NEGATIVE) Urine Mucus (NONE-MOD) 01/24/19 01/25/19 01/25/19 Range/Units 23:26 05:32 05:32 WBC 5.76 (4.0-11.0) K/uL RBC 3.83 L (4.30-5.90) M/uL Hgb 12.7 (12.0-16.0) g/dL Hct 37.8 (36.0-46.0) % MCV 98.7 H (80.0-98.0) fL MCH 33.2 H (27.0-32.0) pg MCHC 33.6 (31.0-37.0) g/dL RDW Std Deviation 48.2 (28.0-62.0) fl RDW Coeff of Britton 13 (11.0-15.0) % Plt Count 169 (150-400) K/uL MPV 11.10 (7.40-12.00) fL Neut % (Auto) 91.5 H (48.0-80.0) % Lymph % (Auto) 4.0 L (16.0-40.0) % [place] % (Auto) 4.5 (0.0-15.0) % Eos % (Auto) 0.0 (0.0-7.0) % Baso % (Auto) 0.0 (0.0-1.5) % Neut # (Auto) 5.3 (1.4-5.7) K/uL Lymph # (Auto) 0.2 L (0.6-2.4) K/uL [place] # (Auto) 0.3 (0.0-0.8) K/uL Eos # (Auto) 0.0 (0.0-0.7) K/uL Baso # (Auto) 0.0 (0.0-0.1) K/uL Nucleated RBC % 0.0 /100WBC Nucleated RBCs # 0 K/uL INR ABG Carboxyhemoglobin (0-15) % Lactate 1.3 (0.20-2.00) mmol/L Sodium 147 H (136-145) mmol/L Potassium 3.6 (3.5-5.1) mmol/L Chloride 112 H (98-107) mmol/L Carbon Dioxide 23.2 (21.0-32.0) mmol/L BUN 12 (7.0-18.0) mg/dL Creatinine 0.8 (0.6-1.0) mg/dL Est Cr Clr Drug Dosing 77.27 mL/min Estimated GFR (MDRD) > 60.0 ml/min Glucose 105 (74-106) mg/dL Calcium 7.9 L (8.5-10.1) mg/dL Total Bilirubin (0.2-1.0) mg/dL AST (15-37) IU/L ALT (14-63) IU/L Alkaline Phosphatase (46-116) U/L Troponin I (0.000-0.056) ng/mL Total Protein (6.4-8.2) g/dL Albumin (3.4-5.0) g/dL Globulin (2.6-4.0) g/dL Albumin/Globulin Ratio (0.9-1.6) Lipase (73-393) U/L Urine Color Urine Appearance Urine pH (5.0-8.0) Ur Specific [place] (1.001-1.035) Urine Protein (NEGATIVE) mg/dL Urine Glucose (UA) (NEGATIVE) mg/dL Urine Ketones (NEGATIVE) mg/dL Urine Occult Blood (NEGATIVE) Urine Nitrite (NEGATIVE) Urine Bilirubin (NEGATIVE) Urine Ictotest Urine Urobilinogen (<2.0) EU/dL Ur Leukocyte Esterase (NEGATIVE) Urine RBC (0-2/HPF) Urine WBC (0-5/HPF) Ur Epithelial Cells (NONE-FEW) Amorphous Sediment (NEGATIVE) Urine Bacteria (NEGATIVE) Urine Mucus (NONE-MOD) [place] Results Last 24 Hours: Microbiology 01/24/19 20:30 Clostridium difficile Toxin A & B - Final Stool / Feces Negative for C.Diff Toxin/AG REFERENCE RANGE: NEGATIVE 01/24/19 20:30 Campylobacter Antigen Assay - Final Stool / Feces Positive Campylobacter Ag Med Orders - Current: Current Medications Acetaminophen (Tylenol) 650 mg PO Q4H PRN PRN Reason: Pain/Fever Last Admin: 01/24/19 21:14 Dose: 650 mg Azithromycin (Zithromax) 500 mg PO Q24H [facility] Ceftriaxone Sodium/Dextrose 1 (gm/ Premix) 50 mls @ 100 mls/hr IV Q24H [facility] Last Admin: 01/24/19 22:35 Dose: Not Given Sodium Chloride (Normal Saline) 1,000 mls @ 150 mls/hr IV ASDIRECTED [facility] Last Admin: 01/25/19 03:55 Dose: 150 mls/hr Ondansetron HCl (Zofran) 4 mg IVPUSH Q4H PRN PRN Reason: Nausea/Vomiting Discontinued Medications Sodium Chloride (Normal Saline) 2,000 mls @ 999 mls/hr IV STAT ONE Stop: 01/24/19 18:30 Last Infusion: 01/24/19 17:30 Dose: 400 mls/hr Ceftriaxone Sodium/Dextrose 1 (gm/ Premix) 50 mls @ 100 mls/hr IV ONETIME ONE Stop: 01/24/19 17:46 Last Admin: 01/24/19 17:30 Dose: 100 mls/hr Piperacillin Sod/Tazobactam (Sod 3.375 gm/ Sodium Chloride) 50 mls @ 100 mls/ hr IV ONETIME ONE Stop: 01/24/19 18:38 Last Admin: 01/24/19 18:25 Dose: 100 mls/hr Sodium Chloride (Normal Saline) 1,000 mls @ 999 mls/hr IV .Bolus ONE Stop: 01/24/19 19:09 Last Admin: 01/24/19 18:28 Dose: 999 mls/hr Ondansetron HCl (Zofran) 4 mg IVPUSH ONETIME ONE Stop: 01/24/19 16:31 Last Admin: 01/24/19 17:30 Dose: 4 mg - Exam General: Alert, Oriented, Cooperative Lungs: Clear to Auscultation, Normal Respiratory Effort Cardiovascular: Regular Rate, Regular Rhythm GI/Abdominal Exam: Normal Bowel Sounds, Soft, Non-Tender, No Distention Extremities: No Pedal Edema Skin: Warm, Dry, Intact Neurological: No New Focal Deficit Psy/Mental Status: Alert, Normal Affect, Normal Mood - Problem List & Annotations (1) WADE (acute kidney injury) SNOMED Code(s): 96329397, 92559335 Code(s): N17.9 - ACUTE KIDNEY FAILURE, UNSPECIFIED Status: Acute Current Visit: Yes (2) Campylobacter enteritis SNOMED Code(s): 14588301 Code(s): A04.5 - CAMPYLOBACTER ENTERITIS Status: Acute Current Visit: Yes (3) Dehydration SNOMED Code(s): 69860919 Code(s): E86.0 - DEHYDRATION Status: Acute Current Visit: Yes (4) Lactic acidemia SNOMED Code(s): 182024642 Code(s): E87.2 - ACIDOSIS Status: Acute Current Visit: Yes (5) UTI (urinary tract infection) SNOMED Code(s): 18268546 Code(s): N39.0 - URINARY TRACT INFECTION, SITE NOT SPECIFIED Status: Acute Current Visit: Yes - Problem List Review Problem List Initiated/Reviewed/Updated: Yes - My Orders Last 24 Hours: My Active Orders 01/24/19 18:41 Intake and Output [RC] ASDIRECTED Vital Signs [RC] PER UNIT ROUTINE Acetaminophen [Tylenol] 650 mg PO Q4H PRN Ondansetron [Zofran] 4 mg IVPUSH Q4H PRN Sequential Compression Device [OM.PC] Stat Resuscitation Status Stat 01/24/19 18:42 Antiembolic Devices [RC] PER UNIT ROUTINE 01/24/19 18:45 Sodium Chloride 0.9% [Normal Saline] 1,000 ml IV ASDIRECTED cefTRIAXone [Rocephin in Dextrose,Iso-Osm 1 GM/50 ML] 1 gm Premix Bag 1 bag IV Q24H 01/25/19 07:30 Azithromycin [Zithromax] 500 mg PO Q24H 01/25/19 Breakfast Nothing Per Oral Diet [DIET] - Plan Plan:: 1. Nausea, vomiting, diarrhea, positive for Campylobacter- will continue IVF at 150 cc/hr, start Azithromycin 500 mg daily. Zofran for nausea/vomiting. 2. Elevated lactate- resolved 3. WADE likely secondary to dehydration- resolved 4. Hemoconcentration- likely secondary to dehydration-resolved 5. UTI- continue Rocephin, urine culture pending. Will re-evaluate this afternoon, possible discharge later this evening.
[2019-01-25] MEDS ORDERED: Lisinopril 10 MG Tab PO SCH (15:15)
--- NOTE | 2019-01-25 17:45 | PCM.DCSUM1 ---
<Crissy Topete - Last Filed: 01/25/19 17:55> Discharge Summary - Hospital Course HPI Initial Comments: Admission Date:01/24/19 Discharge Date:01/25/19 Admission Diagnosis: 1. Nausea, vomiting, and diarrhea likely gastroenteritis 2. Elevated lactate 3. Hemoconcentration likely secondary to dehydration 4. WADE likely secondary to dehydration 5. UTI Discharge Diagnosis: 1. Nausea, vomiting, and diarrhea with positive Campylobacter 2. Elevated lactate- resolved 3. Hemoconcentration likely secondary to dehydration- resolved 4. WADE likely secondary to dehydration- resolved 5. UTI- GBS positive Procedures: None Consults: None Hospital Course: The patient is a 53-year-old female who presented to the ER with nausea, vomiting and diarrhea for one day. In the ER she was found to have to be hemoconcentrated, elevated lactate, acute kidney injury, and a UA that showed signs of urinary tract infection. They did a chest and abdominal x-ray that showed no acute issues and head CT that showed no acute intracranial findings. In the ER, she was given 3 L of IV fluids, given a dose of Rocephin and Zosyn. She was admitted to the medical surgical floor for observation where she was treated with IV fluids. Stool samples were obtained and were positive for Campylobacter. She started on azithromycin for Campylobacter infection. She was C. difficile negative and Shiga and cultures were pending at time of discharge. After IV fluid resuscitation, her lactate, hemoconcentration, and WADE resolved. She did have a UTI on UA and was started on Rocephin, urine culture growing GBS> By day of discharge, the patient was feeling better and was ready to go home Disposition: Home Discharge Condition: vitals stable, ambulating without difficulty, symptom improvement Discharge Instructions: regular diet as tolerated, activity as tolerated, take medications as prescribed. Symptoms to report to physician include fever/chills , chest pain, shortness of breath, abdominal pain, erythema, drainage/discharge , or not improving as expected. Discharge Medications: PARoxetine HCl [Paxil] 20 mg PO BEDTIME Azithromycin 500 mg PO DAILY Lisinopril 10 mg PO DAILY cephALEXin [Keflex] 500 mg PO BID Follow-up: 1. With PCP- Dr. Walsh within 1-2 weeks - Discharge Data Discharge Date: 01/25/19 Discharge Disposition: Home, Self-Care 01 Condition: Fair - Discharge Diagnosis/Problem(s) (1) WADE (acute kidney injury) SNOMED Code(s): 16196244, 92441500 ICD Code: N17.9 - ACUTE KIDNEY FAILURE, UNSPECIFIED Status: Resolved (2) Campylobacter enteritis SNOMED Code(s): 81205836 ICD Code: A04.5 - CAMPYLOBACTER ENTERITIS Status: Acute (3) Dehydration SNOMED Code(s): 95997065 ICD Code: E86.0 - DEHYDRATION Status: Resolved (4) Lactic acidemia SNOMED Code(s): 790813450 ICD Code: E87.2 - ACIDOSIS Status: Resolved (5) UTI (urinary tract infection) SNOMED Code(s): 73743375 ICD Code: N39.0 - URINARY TRACT INFECTION, SITE NOT SPECIFIED Status: Acute - Patient Instructions Diet, Other: advance diet as tolerated Activity: As Tolerated Driving: May Drive Today Showering/Bathing: May Shower Notify Provider of: Fever, Increased Pain, Swelling and Redness, Drainage, Nausea and/or Vomiting Other/Special Instructions: Additional symptoms include chest pain, shortness of breath, abdominal pain, or worsening diarrhea. You will be prescribed two medications: 1. Keflex for UTI. 2. Azithromycin for campylobacter infection that causes diarrhea - Discharge Plan *PRESCRIPTION DRUG MONITORING PROGRAM REVIEWED*: No *COPY OF PRESCRIPTION DRUG MONITORING REPORT IN PATIENT LICO: No Prescriptions/Med Rec: Azithromycin 500 mg PO DAILY 2 Days #2 tablet cephALEXin [Keflex] 500 mg PO BID 3 Days #6 cap Home Medications: Home Meds PARoxetine HCl [Paxil] 20 mg PO BEDTIME 01/24/19 [History] Azithromycin 500 mg PO DAILY 2 Days #2 tablet 01/25/19 [Rx] Lisinopril 10 mg PO DAILY 01/25/19 [History] cephALEXin [Keflex] 500 mg PO BID 3 Days #6 cap 01/25/19 [Rx] Patient Handouts: Gastritis, Adult, [id number], Campylobacter Gastroenteritis , Azithromycin tablets, Cephalexin tablets or capsules Referrals: Ean Walsh MD [Ordering Only Provider] - - Discharge Summary/Plan Comment DC Time >30 min.: No - Patient Data Vitals - Most Recent: Last Vital Signs Temp 98.3 F 01/25/19 12:00 Pulse 78 01/25/19 12:00 Resp 16 01/25/19 12:00 BP 143/90 H 01/25/19 15:15 Pulse Ox 97 01/25/19 12:00 Weight - Most Recent: 85.366 kg I&O - Last 24 hours: Intake & Output 01/25/19 01/25/19 01/25/19 06:59 14:59 22:59 Intake Total 922 2380 Output Total 750 900 Balance 172 1480 Lab Results - Last 24 hrs: Laboratory Results - last 24 hr 01/24/19 01/24/19 01/24/19 Range/Units 17:25 17:25 17:25 WBC (4.0-11.0) K/uL RBC (4.30-5.90) M/uL Hgb (12.0-16.0) g/dL Hct (36.0-46.0) % MCV (80.0-98.0) fL MCH (27.0-32.0) pg MCHC (31.0-37.0) g/dL RDW Std Deviation (28.0-62.0) fl RDW Coeff of Britton (11.0-15.0) % Plt Count (150-400) K/uL MPV (7.40-12.00) fL Neut % (Auto) (48.0-80.0) % Lymph % (Auto) (16.0-40.0) % [place] % (Auto) (0.0-15.0) % Eos % (Auto) (0.0-7.0) % Baso % (Auto) (0.0-1.5) % Neut # (Auto) (1.4-5.7) K/uL Lymph # (Auto) (0.6-2.4) K/uL [place] # (Auto) (0.0-0.8) K/uL Eos # (Auto) (0.0-0.7) K/uL Baso # (Auto) (0.0-0.1) K/uL Nucleated RBC % /100WBC Nucleated RBCs # K/uL INR 1.11 ABG Carboxyhemoglobin 1.8 (0-15) % Lactate (0.20-2.00) mmol/L Sodium 142 (136-145) mmol/L Potassium 3.8 (3.5-5.1) mmol/L Chloride 105 (98-107) mmol/L Carbon Dioxide 20.9 L (21.0-32.0) mmol/L BUN 19 H (7.0-18.0) mg/dL Creatinine 1.1 H (0.6-1.0) mg/dL Est Cr Clr Drug Dosing 56.19 mL/min Estimated GFR (MDRD) 51.6 ml/min Glucose 183 H (74-106) mg/dL Calcium 10.6 H (8.5-10.1) mg/dL Total Bilirubin 1.5 H (0.2-1.0) mg/dL AST 34 (15-37) IU/L ALT 63 (14-63) IU/L Alkaline Phosphatase 88 (46-116) U/L Troponin I < 0.050 (0.000-0.056) ng/mL Total Protein 8.3 H (6.4-8.2) g/dL Albumin 4.4 (3.4-5.0) g/dL Globulin 3.9 (2.6-4.0) g/dL Albumin/Globulin Ratio 1.1 (0.9-1.6) Lipase 61 L (73-393) U/L 01/24/19 01/25/19 01/25/19 Range/Units 23:26 05:32 05:32 WBC 5.76 (4.0-11.0) K/uL RBC 3.83 L (4.30-5.90) M/uL Hgb 12.7 (12.0-16.0) g/dL Hct 37.8 (36.0-46.0) % MCV 98.7 H (80.0-98.0) fL MCH 33.2 H (27.0-32.0) pg MCHC 33.6 (31.0-37.0) g/dL RDW Std Deviation 48.2 (28.0-62.0) fl RDW Coeff of Britton 13 (11.0-15.0) % Plt Count 169 (150-400) K/uL MPV 11.10 (7.40-12.00) fL Neut % (Auto) 91.5 H (48.0-80.0) % Lymph % (Auto) 4.0 L (16.0-40.0) % [place] % (Auto) 4.5 (0.0-15.0) % Eos % (Auto) 0.0 (0.0-7.0) % Baso % (Auto) 0.0 (0.0-1.5) % Neut # (Auto) 5.3 (1.4-5.7) K/uL Lymph # (Auto) 0.2 L (0.6-2.4) K/uL [place] # (Auto) 0.3 (0.0-0.8) K/uL Eos # (Auto) 0.0 (0.0-0.7) K/uL Baso # (Auto) 0.0 (0.0-0.1) K/uL Nucleated RBC % 0.0 /100WBC Nucleated RBCs # 0 K/uL INR ABG Carboxyhemoglobin (0-15) % Lactate 1.3 (0.20-2.00) mmol/L Sodium 147 H (136-145) mmol/L Potassium 3.6 (3.5-5.1) mmol/L Chloride 112 H (98-107) mmol/L Carbon Dioxide 23.2 (21.0-32.0) mmol/L BUN 12 (7.0-18.0) mg/dL Creatinine 0.8 (0.6-1.0) mg/dL Est Cr Clr Drug Dosing 77.27 mL/min Estimated GFR (MDRD) > 60.0 ml/min Glucose 105 (74-106) mg/dL Calcium 7.9 L (8.5-10.1) mg/dL Total Bilirubin (0.2-1.0) mg/dL AST (15-37) IU/L ALT (14-63) IU/L Alkaline Phosphatase (46-116) U/L Troponin I (0.000-0.056) ng/mL Total Protein (6.4-8.2) g/dL Albumin (3.4-5.0) g/dL Globulin (2.6-4.0) g/dL Albumin/Globulin Ratio (0.9-1.6) Lipase (73-393) U/L TANMAY Results - Last 24 hrs: Microbiology 01/24/19 17:25 Aerobic Blood Culture - Preliminary Blood - Venous NO GROWTH AFTER 1 DAY Anaerobic Blood Culture - Preliminary NO GROWTH AFTER 1 DAY 01/24/19 16:45 Urine Culture - Final Urine, Clean Catch Positive For Group B Strep Normal Urogenital Karrie 01/24/19 20:30 Clostridium difficile Toxin A & B - Final Stool / Feces Negative for C.Diff Toxin/AG REFERENCE RANGE: NEGATIVE 01/24/19 20:30 Campylobacter Antigen Assay - Final Stool / Feces Positive Campylobacter Ag Med Orders - Current: Current Medications Acetaminophen (Tylenol) 650 mg PO Q4H PRN PRN Reason: Pain/Fever Last Admin: 01/24/19 21:14 Dose: 650 mg Azithromycin (Zithromax) 500 mg PO Q24H [facility] Last Admin: 01/25/19 08:30 Dose: 500 mg Ceftriaxone Sodium/Dextrose 1 (gm/ Premix) 50 mls @ 100 mls/hr IV Q24H [facility] Last Admin: 01/24/19 22:35 Dose: Not Given Sodium Chloride (Normal Saline) 1,000 mls @ 150 mls/hr IV ASDIRECTED [facility] Last Admin: 01/25/19 10:26 Dose: 150 mls/hr Lisinopril (Prinivil) 10 mg PO DAILY [facility] Last Admin: 01/25/19 15:15 Dose: 10 mg Ondansetron HCl (Zofran) 4 mg IVPUSH Q4H PRN PRN Reason: Nausea/Vomiting Paroxetine HCl (Paxil) 20 mg PO BEDTIME [facility] Discontinued Medications Sodium Chloride (Normal Saline) 2,000 mls @ 999 mls/hr IV STAT ONE Stop: 01/24/19 18:30 Last Infusion: 01/24/19 17:30 Dose: 400 mls/hr Ceftriaxone Sodium/Dextrose 1 (gm/ Premix) 50 mls @ 100 mls/hr IV ONETIME ONE Stop: 01/24/19 17:46 Last Admin: 01/24/19 17:30 Dose: 100 mls/hr Piperacillin Sod/Tazobactam (Sod 3.375 gm/ Sodium Chloride) 50 mls @ 100 mls/ hr IV ONETIME ONE Stop: 01/24/19 18:38 Last Admin: 01/24/19 18:25 Dose: 100 mls/hr Sodium Chloride (Normal Saline) 1,000 mls @ 999 mls/hr IV .Bolus ONE Stop: 01/24/19 19:09 Last Admin: 01/24/19 18:28 Dose: 999 mls/hr Ondansetron HCl (Zofran) 4 mg IVPUSH ONETIME ONE Stop: 01/24/19 16:31 Last Admin: 01/24/19 17:30 Dose: 4 mg <Moises Ann M - Last Filed: 01/26/19 16:40> Discharge Summary - Hospital Course HPI Initial Comments: I have seen and examined the patient independently of Dr. Yoselyn DO. I have reviewed and agree with the plan of care as outlined for this patient by her. I have discussed the case with her. Please see orders. - Patient Data Vitals - Most Recent: Last Vital Signs Temp 37.0 C 01/25/19 16:00 Pulse 89 01/25/19 16:00 Resp 16 01/25/19 16:00 BP 153/84 H 01/25/19 16:00 Pulse Ox 95 01/25/19 16:00 TANMAY Results - Last 24 hrs: Microbiology 01/24/19 20:30 Campylobacter Antigen Assay - Final Stool / Feces Positive Campylobacter Ag Shiga Toxin I - Final NEGATIVE FOR SHIGA TOXIN 1 REFERENCE RANGE: NEGATIVE Shiga Toxin II - Final NEGATIVE FOR SHIGA TOXIN 2 REFERENCE RANGE: NEGATIVE 01/24/19 17:53 Aerobic Blood Culture - Preliminary Blood - Venous - Lab Draw NO GROWTH AFTER 1 DAY Anaerobic Blood Culture - Preliminary NO GROWTH AFTER 1 DAY 01/24/19 17:25 Aerobic Blood Culture - Preliminary Blood - Venous NO GROWTH AFTER 1 DAY Anaerobic Blood Culture - Preliminary NO GROWTH AFTER 1 DAY Med Orders - Current: Current Medications Discontinued Medications Acetaminophen (Tylenol) 650 mg PO Q4H PRN PRN Reason: Pain/Fever Last Admin: 01/24/19 21:14 Dose: 650 mg Azithromycin (Zithromax) 500 mg PO Q24H MORENA Last Admin: 01/25/19 08:30 Dose: 500 mg Sodium Chloride (Normal Saline) 2,000 mls @ 999 mls/hr IV STAT ONE Stop: 01/24/19 18:30 Last Infusion: 01/24/19 17:30 Dose: 400 mls/hr Ceftriaxone Sodium/Dextrose 1 (gm/ Premix) 50 mls @ 100 mls/hr IV ONETIME ONE Stop: 01/24/19 17:46 Last Admin: 01/24/19 17:30 Dose: 100 mls/hr Piperacillin Sod/Tazobactam (Sod 3.375 gm/ Sodium Chloride) 50 mls @ 100 mls/ hr IV ONETIME ONE Stop: 01/24/19 18:38 Last Admin: 01/24/19 18:25 Dose: 100 mls/hr Sodium Chloride (Normal Saline) 1,000 mls @ 999 mls/hr IV .Bolus ONE Stop: 01/24/19 19:09 Last Admin: 01/24/19 18:28 Dose: 999 mls/hr Ceftriaxone Sodium/Dextrose 1 (gm/ Premix) 50 mls @ 100 mls/hr IV Q24H [facility] Last Admin: 01/24/19 22:35 Dose: Not Given Sodium Chloride (Normal Saline) 1,000 mls @ 150 mls/hr IV ASDIRECTED [facility] Last Admin: 01/25/19 10:26 Dose: 150 mls/hr Lisinopril (Prinivil) 10 mg PO DAILY [facility] Last Admin: 01/25/19 15:15 Dose: 10 mg Loperamide HCl (Imodium) 2 mg PO Q4H PRN PRN Reason: Diarrhea Ondansetron HCl (Zofran) 4 mg IVPUSH ONETIME ONE Stop: 01/24/19 16:31 Last Admin: 01/24/19 17:30 Dose: 4 mg Ondansetron HCl (Zofran) 4 mg IVPUSH Q4H PRN PRN Reason: Nausea/Vomiting Paroxetine HCl (Paxil) 20 mg PO BEDTIME [facility]
[2019-01-25] MEDS ORDERED: Loperamide 2 MG Cap PO PRN (17:54)
[2019-01-25] MEDS ORDERED: PARoxetine 20 MG Tab PO SCH (21:00)
== END 2019-01-25 19:30 | disposition home or self-care (01) ==
LOC: MW.ED 16:12 → MW.MS 18:14
PROVIDERS: ADMIT Internal Medicine; ATTEND Internal Medicine
DX: A04.5 Campylobacter enteritis (principal); R74.0 Nonspecific elevation of levels of transaminase and lactic acid dehydrogenase [LDH]; N17.9 Acute kidney failure, unspecified; N39.0 Urinary tract infection, site not specified; B95.7 Other staphylococcus as the cause of diseases classified elsewhere; E86.0 Dehydration; E87.2 Acidosis; I10 Essential (primary) hypertension; F32.9 Major depressive disorder, single episode, unspecified; Z79.899 Other long term (current) drug therapy
CPT/HCPCS: 36415; 70450; 74022; 80048; 80053; 81001; 82375; 83605; 83690; 84484; 85025; 85610; 87040; 87046; 87086; 87324; 87899; 93005; 96361; 96365; 96367; 96375; 99285; A9270; G0378; J0696; J2405; J2543; J7040; J7050; 99284